=== PATIENT | female | born 1990 | race Caucasian/White ===

== ENCOUNTER 2016-08-04 19:21 | Emergency (ER) | payer SELFPAY ==
[2016-08-04] MEDS ORDERED: NORMAL SALINE 1000 ML 1,000 ML IV ONE (20:17)
[2016-08-04] MEDS ORDERED: ONDANSETRON HCL INJ/PF 4 MG/2 ML SDV IV ONE (20:18)
[2016-08-04] MEDS ORDERED: KETOROLAC TROMETHAMINE INJ/PF 30 MG/1 ML SDV IV ONE (20:18)
[2016-08-04] MEDS ORDERED: MORPHINE SULFATE 10 MG/ML INJ IV ONE (20:18)
--- NOTE | 2016-08-04 20:20 | ER Document Report ---
ED GI/ - General Chief Complaint: kidney stones Stated Complaint: LOWER ABDOMINAL PAIN Time Seen by Provider: 08/04/16 20:00 Notes: 9 patient is a 26-year-old female who comes emergency department for chief complaint of abdominal pain and flank pain on the left side, she states pain is sharp, she states that she was recently evaluated and placed on Cipro for a urinary tract infection, she was told that she has 2 kidney stones on the left side but she was not passing them the last time she was evaluated. She is on flomax and percocet. She had a hard bowel movement earlier today. She denies vaginal discharge or STD exposure. Currently on menstrual cycle. PMH appendectomy, denies any other medical history. TRAVEL OUTSIDE OF THE [place] IN LAST 30 DAYS: No - Related Data Allergies/Adverse Reactions: amoxicillin trihydrate [From Amoxil] Allergy (Verified 11/24/15 11:53) swelling Past Medical History - General Information source: Patient, Parent - Social History Smoking Status: Never Smoker Drug Abuse: None Lives with: Family Family History: Arthritis, CAD, CVA, Hypertension, Malignancy Patient has suicidal ideation: No Patient has homicidal ideation: No Neurological Medical History: Reports: Hx Migraine Renal/ Medical History: Reports: Hx Kidney Stones, Hx Ovarian Cysts. Denies: Hx Peritoneal Dialysis GI Medical History: Reports: Hx Gastroesophageal Reflux Disease Musculoskeltal Medical History: Reports Hx Musculoskeletal Trauma Skin Medical History: Reports Hx MRSA Traumatic Medical History: Reports: Hx Fractures - left wrist Surgical Hx: Negative - Immunizations Immunizations up to date: Yes Hx Diphtheria, Pertussis, Tetanus Vaccination: Yes - 2008 Review of Systems - Review of Systems Constitutional: No symptoms reported EENT: No symptoms reported Cardiovascular: No symptoms reported Respiratory: No symptoms reported Gastrointestinal: See HPI Genitourinary: See HPI Female Genitourinary: See HPI Musculoskeletal: No symptoms reported Skin: No symptoms reported Hematologic/Lymphatic: No symptoms reported Neurological/Psychological: No symptoms reported Physical Exam - Vital signs Vitals: Temp Pulse Resp BP Pulse Ox 98.9 F 87 20 134/77 H 97 08/04/16 19:34 08/04/16 19:34 08/04/16 19:34 08/04/16 19:34 08/04/16 19:34 Interpretation: Normal - General General appearance: Appears well, Alert In distress: None - HEENT Head: Normocephalic, Atraumatic Eyes: Normal Pupils: PERRL - Respiratory Respiratory status: No respiratory distress Chest status: Nontender Breath sounds: Normal Chest palpation: Normal - Cardiovascular Rhythm: Regular Heart sounds: Normal auscultation Murmur: No - Abdominal Inspection: Normal Distension: No distension Bowel sounds: Normal Tenderness: Tender - generalized non-specific lower abdominal tenderness. No: Guarding Organomegaly: No organomegaly - Back Back: CVA tenderness - patient complains of pain with palpation over left CVA area, no obvious discomfort (no wincing or pulling away. No: Vertebra tenderness - Extremities General upper extremity: Normal inspection, Nontender, Normal color, Normal ROM , Normal temperature General lower extremity: Normal inspection, Nontender, Normal color, Normal ROM , Normal temperature, Normal weight bearing. No: Yaya's sign - Neurological Neuro grossly intact: Yes Cognition: Normal Orientation: AAOx4 [place] Coma Scale Eye Opening: Spontaneous [place] Coma Scale Verbal: Oriented [place] Coma Scale Motor: Obeys Commands [place] Coma Scale Total: 15 Speech: Normal Motor strength normal: LUE, RUE, LLE, RLE Sensory: Normal - Psychological Associated symptoms: Normal affect, Normal mood - Skin Skin Temperature: Warm Skin Moisture: Dry Skin Color: Normal Course - Re-evaluation Re-evalutation: CBC, chemistry normal, urinalysis shows no blood on dipstick but not full analysis. Left renal stone noted with no hydronoephrosis. No evidence of passing stone. No infection. No tachycardia, vomiting, or other concerning abnormalities. No fever. On reexamination patient is well-appearing. Asymptomatic. Normal distal pulses. I suspect patient may be constipated because of Percocet use, providing stool softener, also patient is on her menstrual cycle. I do not appreciate any lower abdominal tenderness suggesting ovarian torsion and patient's presentation does not also fit with this diagnosis. Low suspicion of any emergent abnormality. After discussion patient will be provided with Toradol for cramps/pain, advised to continue her current medications along with a stool softener, advised follow-up with primary care for additional management. I did discuss return precautions with patient and mother, they state understanding and agreement. - Vital Signs Vital signs: Temp Pulse Resp BP Pulse Ox 98.9 F 85 18 130/74 H 100 08/04/16 19:34 08/04/16 22:45 08/04/16 22:45 08/04/16 22:45 08/04/16 22:45 - Laboratory Result Diagrams: 08/04/16 20:25 08/04/16 20:25 Laboratory results interpreted by me: 08/04/16 08/04/16 20:10 20:25 Glucose 70 L Urine Blood LARGE H Discharge - Discharge Clinical Impression: Flank pain Abdominal pain Qualifiers: Abdominal location: lower abdomen, unspecified Qualified Code(s): R10.30 - Lower abdominal pain, unspecified Condition: Stable Disposition: HOME, SELF-CARE Additional Instructions: Ultrasound shows the stone still in the left kidney, no swellnig on the kidney; no infection in the urine is seen, your lab workup is normal. Take the toradol if needed for pain (with food if possible), hydrate, continue current meds, also take colace stool softener. Return to the ED for any concerning symptoms - fever, vomiting, etc. Prescriptions: Ketorolac Tromethamine [Toradol 10 mg Tablet] 10 mg PO Q8HP PRN #24 tablet PRN Reason: Docusate Sodium [Colace 100 mg Capsule] 100 mg PO DAILY #30 capsule Forms: Return to Work
[2016-08-04 20:48] LABS: ABSOLUTE EOSINOPHILS # (AUTO) 0.5 10^3/uL (0.0-0.6); ABSOLUTE LYMPHOCYTES (AUTO) 1.8 10^3/uL (0.5-4.7); ABSOLUTE MONOCYTES (AUTO) 0.7 10^3/uL (0.1-1.4); ABSOLUTE NEUT (AUTO) 6.2 10^3/uL (1.7-8.2); BASOPHILS % (AUTO) 0.4 % (0-2); EOSINOPHILS % (AUTO) 4.9 % (0-6); HEMATOCRIT 42.8 % (36.0-47.0); HEMOGLOBIN 14.4 g/dL (12.0-15.5); HGB HCT DIFFERENCE 0.4; LYMPHOCYTES % (AUTO) 19.7 % (13-45); MEAN CORPUSCULAR HEMOGLOBIN 28.3 pg (27.0-33.4); MEAN CORPUSCULAR HGB CONC 33.6 g/dL (32.0-36.0); MEAN CORPUSCULAR VOLUME 84 fl (80-97); MONOCYTES % (AUTO) 7.7 % (3-13); RED BLOOD COUNT 5.07 10^6/uL (3.72-5.28); RED CELL DISTRIBUTION WIDTH 13.3 % (11.5-14.0); SEGMENTED NEUTROPHILS % (AUTO) 67.3 % (42-78); WHITE BLOOD COUNT 9.3 10^3/uL (4.0-10.5)
[2016-08-04 20:51] LABS: APPEARANCE,URINE CLEAR; BILIRUBIN,URINE NEGATIVE (NEGATIVE); GLUCOSE, URINE NEGATIVE (NEGATIVE); KETONES,URINE NEGATIVE (NEGATIVE); LEUKOCYTE ESTERASE,URINE NEGATIVE (NEGATIVE); NITRITE,URINE NEGATIVE (NEGATIVE); PROTEIN,URINE NEGATIVE (NEGATIVE); URINE SPECIFIC GRAVITY 1.003; UROBILINOGEN,URINE NEGATIVE mg/dL (<2.0)
[2016-08-04 21:00] LABS: ANION GAP 9 (5-19); BLOOD UREA NITROGEN 10 mg/dL (7-20); CALCIUM 9.4 mg/dL (8.4-10.2); CARBON DIOXIDE 25 mmol/L (22-30); CHLORIDE 105 mmol/L (98-107); CREATININE RESULT 0.84 mg/dL (0.52-1.25); GLUCOSE 70 mg/dL (75-110); POTASSIUM 3.9 mmol/L (3.6-5.0); SODIUM 139.1 mmol/L (137-145)
--- NOTE | 2016-08-04 21:25 | RADIOLOGY REPORT (SQ) ---
EXAM DESCRIPTION: U/S RETROPERITON (RENAL/AORTA) COMPLETED DATE/TIME: 08/04/2016 9:12 pm REASON FOR STUDY: ? left hydronephrosis COMPARISON: Renal ultrasound 11/24/[address] 11/22/2015 TECHNIQUE: Dynamic and static grayscale images acquired of the kidneys and bladder and recorded on P ACS. Additional selected color Doppler and spectral images recorded. LIMITATIONS: None. FINDINGS: RIGHT KIDNEY: Normal size. Normal echogenicity. No solid or suspicious masses. No hydronep hrosis. No calcifications. LEFT KIDNEY: Normal size. Normal echogenicity. No solid or suspicious masses. No hydronephrosis. Sc attered, punctate echogenic foci within the left renal collecting system, similar to that seen on com parison imaging cited above. BLADDER: No masses. OTHER FINDINGS: Incidental note is made of a 3.6 cm dominant follicle within the right ovary. In a [age]-year-old female, this requires no further follow-up. IMPRESSION: Re- demonstration of nonobstructing left renal calculi. No evidence of clinically queri ed left hydronephrosis. TECHNICAL DOCUMENTATION: JOB ID: [id number]- All Rights Reserved
[2016-08-04 23:28] VITALS: BP 130/74
== END 2016-08-04 22:45 | disposition home or self-care (01) ==
LOC: ER 19:21
DX: R10.30 Lower abdominal pain, unspecified (principal); Z79.899 Other long term (current) drug therapy
CPT/HCPCS: 99284; 96361; 96374; 96375; 36415; 85025; 81025; 80048; 81001; 76770; J1885; J2270; J2405; J7030